=== PATIENT | female | born 1960 | race Caucasian/White ===

== ENCOUNTER 2017-01-20 19:36 | Emergency (ER) | payer OTHER ==
[~2017-01-20] VITALS: Ht 160 cm; Wt 92.0 kg
[2017-01-20 20:12] VITALS: BP 170/110; PULSE 78; RESP 16; TEMP 98.4; O2SAT 96
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
[2017-01-20] MEDS ORDERED: OXYC80TA9 PO (20:19)
[2017-01-20] MEDS ORDERED: AMLO5TAB2 PO (20:19)
[2017-01-20] MEDS ORDERED: OXYC60TA8 PO (20:19)
[2017-01-20] MEDS ORDERED: KETOROLAC TROMETHAMINE 60 MG/2 ML (IM) VIAL IM ONE (20:30)
[2017-01-20] MEDS ORDERED: ORPHENADRINE INJ 60 MG/2 ML AMP IM ONE (20:30)
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
[2017-01-20] MEDS ORDERED: IBUP800T23 PO (21:35)
[2017-01-20] MEDS ORDERED: ROBA500T PO (21:35)
== END 2017-01-20 21:49 | disposition home or self-care (01) ==
LOC: NEDAMB 19:36
DX: S16.1XXA Strain of muscle, fascia and tendon at neck level, initial encounter (principal); V49.50XA Passenger injured in collision with unspecified motor vehicles in traffic accident, initial encounter
CPT/HCPCS: 72040; 96372; 99284; J1885; J2360